=== PATIENT | female | born 1995 | race Two or more races ===

== ENCOUNTER → 2017-02-10 06:55 | Emergency (ER) | payer MEDICAID, OTHER ==
[~2017-02-10 06:55] MED LIST: Cephalexin CAP* 500 MG PO ONE; Ketorolac INJ* 60 MG/2 ML VIAL IM ONE; Sulfamethox/Trimethoprim DS 800/160* TAB PO ONE
[2017-02-10 07:02] VITALS: BP 121/69
--- NOTE | 2017-02-18 15:07 | ED ---
Luis Zelaya Angela, scribed for Demetrius Kearney MD on 02/10/17 at 0842 . Skin Complaint - HPI Summary HPI Summary: This pt is a 21 y/o female presenting to [facility] c/o an insect bite on her right forearm since this morning. She reports it as tender but not pruritic. Pt denies any fever, sweats, and chills. She has used ice with minimal relief. - History of Current Complaint Chief Complaint: EDRashSkinAbscess Time Seen by Provider: 02/10/17 08:24 Stated Complaint: SWELLING RIGHT ARM Hx Obtained From: Patient Onset/Duration: Started Hours Ago Timing: Constant Pain Intensity: 3 Skin Location: Discrete Aggravating Symptom(s): Nothing Alleviating Symptom(s): Nothing Associated Signs & Symptoms: Tenderness - Allergy/Home Medications Allergies/Adverse Reactions: Allergies Allergy/AdvReac Type Severity Reaction Status Date / Time Acetaminophen Allergy Anaphylatic Verified 02/10/17 07:01 Shock PMH/Surg Hx/FS Hx/Imm Hx Infectious Disease History: No Infectious Disease History: Denies: Traveled Outside the [place] in Last 30 Days - Social History Alcohol Use: None Substance Use Type: Reports: None Smoking Status (MU): Never Smoked Tobacco Review of Systems Negative: Fever, Chills Negative: Erythema Negative: Sore Throat Negative: Chest Pain Negative: Shortness Of Breath, Cough Negative: Abdominal Pain, Vomiting, Nausea Negative: dysuria, hematuria Negative: Myalgia, Decreased ROM Positive: Rash - described as insect bites Neurological: Other - NEGATIVE: Dizziness All Other Systems Reviewed And Are Negative: Yes Physical Exam - Summary Physical Exam Summary: Constitutional: Well-developed, Well-nourished, Alert. (-) Distressed Skin: Warm, Dry. 2cm x 2cm erythema on right forearm. HENT: Normocephalic; Atraumatic Eyes: Conjunctiva normal Neck: Musculoskeletal ROM normal neck. (-) JVD, (-) Stridor, (-) Tracheal deviation Cardio: Rhythm regular, rate normal, Heart sounds normal; Intact distal pulses; The pedal pulses are 2+ and symmetric. Radial pulses are 2+ and symmetric. (-) Murmur Pulmonary/Chest wall: Effort normal. (-) Respiratory distress, (-) Wheezes, (-) Rales Musculoskeletal: (-) Edema Lymph: (-) Cervical adenopathy Neuro: Alert, Oriented x3 Psych: Mood and affect Normal Triage Information Reviewed: Yes Vital Signs On Initial Exam: Initial Vitals Temp Pulse Resp BP Pulse Ox 98 F 65 16 121/69 99 02/10/17 06:59 02/10/17 06:59 02/10/17 06:59 02/10/17 06:59 02/10/17 06:59 Vital Signs Reviewed: Yes Diagnostics - Vital Signs Vital Signs Temp Pulse Resp BP Pulse Ox 02/10/17 08:01 98 F 65 16 121/69 98 02/10/17 06:59 98 F 65 16 121/69 99 - Laboratory Lab Statement: Any lab studies that have been ordered have been reviewed, and results considered in the medical decision making process. Course/Dx - Diagnoses Provider Diagnoses: Wound cellulitis Discharge - Discharge Plan Condition: Stable Disposition: HOME Prescriptions: Cephalexin CAP* [Keflex CAP*] 500 mg PO QID #28 cap Sulfamethox/Trimethoprim DS* [Bactrim DS 800/160 TAB*] 1 tab PO BID #14 tab Patient Education Materials: Cellulitis (ED) Forms: *Work Release Referrals: [facility] [place] [facility]ERR[facility] [Outside] Additional Instructions: Please keep your wound covered at work at all times. RETURN TO THE EMERGENCY DEPARTMENT FOR CHANGING OR WORSENING SYMPTOMS (SUCH A FEVER). The documentation as recorded by the Luis mayfield Angela accurately reflects the service I personally performed and the decisions made by , Demetrius Kearney MD.
== END | disposition home or self-care (01) ==
LOC: ED 06:55
DX: L03.113 Cellulitis of right upper limb (principal); R21 Rash and other nonspecific skin eruption
CPT/HCPCS: 96372; 99281

== ENCOUNTER 2017-05-23 00:21 | Emergency (ER) | payer SELFPAY ==
--- NOTE | 2017-05-23 01:19 | ED ---
Back Pain - HPI Summary HPI Summary: 21F presents with tailbone pain and incontinence. She states that she fell down a flight of stairs on Wed. On she developed in continence. She states she feels the urge to urinate so she tries to walk to the bathroom but she never gets there in time and urinates on herself. She states she can not control the urination. She denies any dysuria or hematuria. She denies any saddle paraesthesia. She denies any loss of bowel. She has been having normal BM. She denies any pain going down the leg. She denies any weakness. She has been taking ibuprofen for the pain. She states pain is 8/10. - History of Current Complaint Chief Complaint: EDUrogenitalProblems Stated Complaint: CONSTANT URINATION/BACK PAIN Time Seen by Provider: 05/23/17 00:52 Pain Intensity: 8 - Allergies/Home Medications Allergies/Adverse Reactions: Allergies Allergy/AdvReac Type Severity Reaction Status Date / Time Acetaminophen Allergy Anaphylatic Verified 02/10/17 07:01 Shock PMH/Surg Hx/FS Hx/Imm Hx Endocrine/Hematology History: Denies: Hx Anticoagulant Therapy Cardiovascular History: Denies: Hx Hypertension Infectious Disease History: No Infectious Disease History: Denies: Traveled Outside the [place] in Last 30 Days - Family History Known Family History: Positive: Hypertension - Social History Alcohol Use: None Substance Use Type: Reports: None Smoking Status (MU): Never Smoked Tobacco Review of Systems Negative: Fever Negative: Chest Pain Negative: Shortness Of Breath Positive: incontinence Positive: Myalgia - back pain All Other Systems Reviewed And Are Negative: Yes Physical Exam Triage Information Reviewed: Yes Vital Signs On Initial Exam: Initial Vitals Temp Pulse Resp BP Pulse Ox 97 F 88 16 145/76 100 05/23/17 00:25 05/23/17 00:25 05/23/17 00:25 05/23/17 00:25 05/23/17 00:25 Vital Signs Reviewed: Yes Appearance: Positive: Well-Appearing Skin: Positive: Warm, Dry Head/Face: Positive: Normal Head/Face Inspection Eyes: Positive: Normal, Conjunctiva Clear Respiratory/Lung Sounds: Positive: Clear to Auscultation, Breath Sounds Present Cardiovascular: Positive: Normal, RRR Abdomen Description: Positive: Nontender, Soft, Other: - good rectal tone Bowel Sounds: Positive: Present Musculoskeletal: Positive: Strength/ROM Intact - back, Other - tenderness over tailbone, good pulses Neurological: Positive: Reflexes Intact - patella, Normal Gait, Other - able to toe and heel walk. Negative: Babinski Bilateral - negative Psychiatric: Positive: Normal Diagnostics - Vital Signs Vital Signs Temp Pulse Resp BP Pulse Ox 05/23/17 00:25 97 F 88 16 145/76 100 - Laboratory Lab Statement: Any lab studies that have been ordered have been reviewed, and results considered in the medical decision making process. - CT lumbar CT Interpretation: Positive (See Comments) - negative for lumbar fracture or malalignment, actue fracture of distal segments of coccyx CT Interpretation Completed By: Radiologist Re-Evaluation - Re-Evaluation First Eval Re-Evaluation Time: 02:59 Change: Unchanged Comment: no incontience in ED, clarified history that has only happened couple times, most times able to urinate as normal. says that just cant get to bathroom in time before urinates on self sometimes. Back Pain Course/Dx - Course Course Of Treatment: 21F presents with tailbone pain and incontinence. She states that she fell down a flight of stairs on Wed. On she developed in continence. She states she feels the urge to urinate so she tries to walk to the bathroom but she never gets there in time and urinates on herself. She states she can not control the urination. She denies any dysuria or hematuria. She denies any saddle paraesthesia. She denies any loss of bowel. She has been having normal BM. She denies any pain going down the leg. She denies any weakness. She has been taking ibuprofen for the pain. She states pain is 8/ 10. on exam tenderness over tailbone, full ROM back, patella intact. neg babinski. walk with normal gait. able to toe and heel walk. good rectal tone. post void residual was 40ml. was able to give urine sample here without urinating on self. urine no infection. discussed case with dr damon. patient then later said that has only happened a couple times. She has been urinating normal otherwise. with Ct normal lumbar fx and is acute fx of distal segments of coccyx, normal neuro exam and with history that sounds more like incontinence due to pain and inability to make to bathroom in time will discharge home and dr damon agrees. told signs to return to ED for as will need MRI. patient understand and agrees with plan. - Diagnoses Differential Diagnosis/HQI/PQRI: Positive: Cauda Equina Syndrome, Fracture, Herniated Disc, Other - uti Provider Diagnoses: Urinary incontinence, Fractured coccyx Discharge - Discharge Plan Condition: Good Disposition: HOME Patient Education Materials: Coccyx Injury (ED) Referrals: [facility] [place] [facility]ERR[facility] [Outside] Additional Instructions: Return immediately to ED if start defecating on self, if develop leg pain with urinary incontinence, pins and needles sensation in pelvis or loss of sensation in pelvis, weakness or difficulty ambulating, if can not urinate or if every urination is not controlled. Take steroid packet as prescribed Use doughnut pillow Place ice on area Establish care with primary.
[2017-05-23] MEDS ORDERED: Ketorolac INJ* 60 MG/2 ML VIAL IM ONE (02:00)
[2017-05-23 02:05] LABS: Urine Bilirubin Negative (Negative); Urine Glucose Negative (Negative); Urine Nitrite Negative (Negative)
[2017-05-23 03:52] VITALS: BP 126/75
--- NOTE | 2017-05-23 07:29 | RAD ---
INDICATION: Trauma, low back pain. COMPARISON: There are no prior studies available for comparison. TECHNIQUE: Contiguous axial sections were obtained beginning above the L1 vertebra and continuing through the L5-S1 disc space. Images were reconstructed in the sagittal and coronal planes. FINDINGS: There is a slightly comminuted fracture involving the distal segments of the coccyx. The fracture fragments are slightly displaced. The vertebra are otherwise in normal alignment. At the L4-L5 level there is a mild broad-based disc bulge. No significant spinal canal or neural foraminal narrowing is seen. At the L5-S1 level there is a mild broad-based disc bulge and mild hypertrophic changes within the facet joints. There appears to be mild lateral recess narrowing. There is mild neural foraminal narrowing on the right side and moderate neural foraminal narrowing on the left side. There is a trace amount of free intraperineal fluid in the cul-de-sac. IMPRESSION: 1. COMMINUTED SLIGHTLY DISPLACED FRACTURE OF THE DISTAL SEGMENTS OF THE COCCYX. 2. MILD DEGENERATIVE DISC DISEASE AND FACET OSTEOARTHRITIS AT THE L4-L5 AND L5-S1 LEVELS.
== END 2017-05-23 03:50 | disposition home or self-care (01) ==
LOC: ED 00:21
DX: R32 Unspecified urinary incontinence (principal); S32.2XXA Fracture of coccyx, initial encounter for closed fracture; W10.9XXA Fall (on) (from) unspecified stairs and steps, initial encounter; Y92.9 Unspecified place or not applicable
CPT/HCPCS: 72131; 81003; 96372; 99283; J1885